=== PATIENT | female | born 1950 | race Caucasian/White ===

== ENCOUNTER 2016-11-06 14:16 | Inpatient (IN) | payer BC ==
[~2016-11-06] VITALS: Ht 162.6 cm; Wt 97.7 kg
[~2016-11-06 14:16] MED LIST: ALDACTONE50 MG PO; ALLEGRA 60MG TA60 MG PO; ALLEGRA D 12 HO1 TER PO; ASPI325T6 PO; ASPIRIN E.C. 8181 MG PO; DIABETA 5MG5 MG/TAB PO; DIOVAN320 MG PO; FARXIGA10 PO; FERROUS SU325 MG/TAB PO; FOLIC ACID 40400 MCG PO; GLUCOPHAGE1000 MG PO; HYGROTON 2525 MG/TAB PO; HYZAAR 25 MG-101 TAB PO; METFORMIN1000 MG PO; MUCINEX 60600 MG/TA1 PO; NORCO 325 MG-7.1 TAB PO; NORVASC 5MG5 MG/TAB PO; ONE DAILY1 TA1 PO; POTASSIUM20 MEQ PO; PRAVACHOL10 MG PO; PREMARIN0.3 MG PO; PROBIOTIC ACID1 EAC3 PO; ROXICODONE 55 MG/TAB PO; SYNTHROID0.1 MG PO; SYNTHROID0.1 MG/TAB PO; ULTRAM 50MG TAB50 MG PO; VITAMIN C500 MG PO; VITAMIN D31000 IU PO; VOLTAREN 75 DR75 MG PO
[2017-01-07] VITALS (11 sets, daily range): BP systolic 109–130; BP diastolic 47–71; PULSE 45–100; TEMP 97.8–98.8
[2017-01-08 03:35] VITALS: BP 105/52; PULSE 69; TEMP 98.8
[2017-01-08 06:57] LABS: HEMATOCRIT 39.6 % (37.0-47.0); HEMOGLOBIN 12.8 g/dl (12.5-16.0)
[2017-01-08 07:44] VITALS: BP 110/54; PULSE 53; TEMP 98.3
[2017-01-08 12:07] VITALS: BP 126/56; PULSE 78; TEMP 97.4
[2017-01-08 16:33] VITALS: BP 106/54; PULSE 83; TEMP 98.2
[2017-01-08 21:30] VITALS: BP 110/56; PULSE 96; TEMP 98.6
[2017-01-09 00:10] VITALS: BP 133/71; PULSE 91; TEMP 98.9
[2017-01-09 04:10] VITALS: BP 132/48; PULSE 93; TEMP 98.9
[2017-01-09 05:49] LABS: HEMATOCRIT 37.8 % (37.0-47.0); HEMOGLOBIN 12.3 g/dl (12.5-16.0)
[2017-01-09 08:17] VITALS: BP 119/60; PULSE 99; TEMP 98.1
[2017-01-09 12:18] VITALS: BP 110/60; PULSE 79; TEMP 97.6
[2017-01-09] MEDS ORDERED: NORCO 325 MG-7.1 TAB PO (13:46)
[2017-01-09] MEDS ORDERED: ASPIRIN 32325 MG/TAB PO (13:46)
[2017-01-09] MEDS ORDERED: ROXICODONE 55 MG/TAB PO (13:47)
== END 2017-01-09 15:00 | disposition home or self-care (01) | DRG 470 ==
LOC: SURG 01-07 06:47 → JCC 01-07 07:30 → SURG 01-07 16:47
PROVIDERS: Orthopaedic Surgery
PROC: 0SRC0J9 Replacement of Right Knee Joint with Synthetic Substitute, Cemented, Open Approach (ICD-10-PCS; principal; 2017-01-07 11:10)
DX: M17.11 Unilateral primary osteoarthritis, right knee (principal); E11.9 Type 2 diabetes mellitus without complications; I10 Essential (primary) hypertension; E03.9 Hypothyroidism, unspecified
CPT/HCPCS: 99222; A4315; A9284; C1713; C1776; J0690; J1100; J1815; J1885; J2250; J2405; J2704; J3010; J3260; J7120

== ENCOUNTER → 2016-12-27 | Outpatient (CLI) | payer BC ==
[2016-12-27 17:23] LABS: HIV 1/2 Antibodies Non-Reactive; HIV-1p24 Antigen Non-Reactive
== END ==
LOC: COL.LAB 14:05
PROVIDERS: Orthopaedic Surgery
DX: Z01.812 Encounter for preprocedural laboratory examination (principal)

== ENCOUNTER → 2017-09-29 | Outpatient (CLI) | payer BC ==
[~2017-09-29] MED LIST changes: +ASPIRIN 32325 MG/TAB PO
[2017-09-29 15:12] LABS: HEMATOCRIT 46.1 % (37.0-47.0); HEMOGLOBIN 15.6 g/dl (12.5-16.0); MEAN CELL VOLUME 82 fl (80.0-100.0); MEAN CORPUSCULAR HEMOGLOBIN 28 pg (27.0-31.0); MEAN CORPUSCULAR HGB CONC 34 g/dl (33.0-37.0); MEAN PLATELET VOLUME 10.3 fl (7.4-10.4); PLATELET COUNT 380 K/mm3 (130-400); RED BLOOD COUNT 5.61 M/mm3 (4.10-5.30); REDCELL DISTRIBUTION WIDTH-CV 13.8 % (11.5-14.5)
[2017-09-29 15:35] LABS: ERYTHROCYTE SEDIMENTATION RATE 4 mm/hr (0-30)
== END ==
LOC: COL.LAB 14:47
PROVIDERS: Nurse Practitioner
DX: T84.84XA Pain due to internal orthopedic prosthetic devices, implants and grafts, initial encounter (principal); M25.461 Effusion, right knee; Z96.651 Presence of right artificial knee joint

== ENCOUNTER → 2017-10-15 | Outpatient (CLI) | payer BC ==
[2017-10-15 08:55] LABS: HEMATOCRIT 41.9 % (37.0-47.0); HEMOGLOBIN 13.5 g/dl (12.5-16.0); MEAN CELL VOLUME 87 fl (80.0-100.0); MEAN CORPUSCULAR HEMOGLOBIN 28 pg (27.0-31.0); MEAN CORPUSCULAR HGB CONC 32 g/dl (33.0-37.0); MEAN PLATELET VOLUME 10.1 fl (7.4-10.4); PLATELET COUNT 289 K/mm3 (130-400); RED BLOOD COUNT 4.82 M/mm3 (4.10-5.30); REDCELL DISTRIBUTION WIDTH-CV 14.8 % (11.5-14.5)
[2017-10-15 09:23] LABS: ERYTHROCYTE SEDIMENTATION RATE 2 mm/hr (0-30)
== END ==
LOC: COL.LAB 08:20
PROVIDERS: Orthopaedic Surgery
DX: Z47.1 Aftercare following joint replacement surgery (principal); M25.561 Pain in right knee; R22.41 Localized swelling, mass and lump, right lower limb; Z96.651 Presence of right artificial knee joint

== ENCOUNTER → 2018-04-27 | Outpatient (CLI) | payer BC | LOC: MC.RAD 14:20 | DX: Z12.31 Encounter for screening mammogram for malignant neoplasm of breast (principal) ==

== ENCOUNTER 2019-04-23 07:42 | Day surgery (SDC) | payer BC ==
[~2019-04-23] VITALS: Ht 162.7 cm; Wt 97.4 kg
[2019-04-23] VITALS (10 sets, daily range): BP systolic 102–131; BP diastolic 56–81; PULSE 46–110; TEMP 98.1
[~2019-04-23 07:42] MED LIST changes: -ASPIRIN 32325 MG/TAB PO; +MULTI VITAMINS1 TAB PO; -ONE DAILY1 TA1 PO
[2019-04-23 09:07] LABS: HEMATOCRIT 41.5 % (37.0-47.0); HEMOGLOBIN 13.6 g/dl (12.5-16.0); MEAN CELL VOLUME 86 fl (80.0-100.0); MEAN CORPUSCULAR HEMOGLOBIN 28 pg (27.0-31.0); MEAN CORPUSCULAR HGB CONC 33 g/dl (33.0-37.0); MEAN PLATELET VOLUME 10.6 fl (7.4-10.4); PLATELET COUNT 333 K/mm3 (130-400); RED BLOOD COUNT 4.81 M/mm3 (4.10-5.30)
[2019-04-23 09:12] LABS: PROTHROMBIN TIME 11.2 SECONDS (9.7-12.8)
[2019-04-23 09:14] LABS: PARTIAL THROMBOPLASTIN TIME 33.3 SECONDS (26.0-37.0)
[2019-04-23 09:17] LABS: CALCIUM 9.9 mg/dL (8.4-10.2); CREATININE, serum 0.96 (0.52-1.25)
--- NOTE | 2019-04-23 10:29 | NUR ---
SEE MERGE FOR MEDICATION ADMINISTRATION TIMES AND INTRA AND POST SEDATION ASSESSMENTS.
[2019-04-23] MEDS ORDERED: VERELAN240 MG PO (11:11)
--- NOTE | 2019-04-23 11:11 | NUR ---
REPORT GIVEN TO EVIE ZIMMER BEDSIDE. PT IS ALERT AND ORIENTED. TR BAND TO R WRIST WITH 12ML IN THE SYRINGE. HEMOSTASIS NOTED. FAMILY AT BEDSIDE. PT HAS NO COMPLAINTS OR QUESTIONS AT THIS TIME.
--- NOTE | 2019-04-23 11:21 | NUR ---
PT is back from cardiac catheterization technician, pt is awake and alert, p,w,d, TR band with [address] to rt wrist, cms intact distal, no bleeding or hematoma noted at this time. wctm. at bs. call light in reach.
--- NOTE | 2019-04-23 11:45 | NUR ---
Pt is awake, satting 88% on room air, placed pt on 2l/nc, sats up to mid 90's.
--- NOTE | 2019-04-23 12:45 | NUR ---
PT is up to bs commode with no problem, voids with no problem, then after sits up at edge of bed to finish her meal. pt is off oxygen now and is satting 93-94% on room air. rt radial site looks good with no hematoma or bleeding, cms remains intact.
--- NOTE | 2019-04-23 14:28 | NUR ---
Pt is getting dressed with husbands help. the remainder of air removed from balloon at 1405, site now dressed with a bandaid without any bleeding or hematoma, cms intact. pt has been able to eat, she has ambulated independently to br with no problem. splint kept in place to rt wrist as a reminder. I reviewed dc/fu and rx instructions with pt and , they were given written copies, and they deny questions at time of departure. pt is escorted to exit via wheelchair.
== END 2019-04-23 14:40 | disposition home or self-care (01) ==
LOC: COL.CAR 07:42
PROVIDERS: Internal Medicine Cardiovascular Disease
DX: I25.10 Atherosclerotic heart disease of native coronary artery without angina pectoris (principal); R94.39 Abnormal result of other cardiovascular function study; E11.9 Type 2 diabetes mellitus without complications; I10 Essential (primary) hypertension; E03.9 Hypothyroidism, unspecified; I48.91 Unspecified atrial fibrillation; G89.29 Other chronic pain; M54.9 Dorsalgia, unspecified; M19.90 Unspecified osteoarthritis, unspecified site; Z80.0 Family history of malignant neoplasm of digestive organs; Z90.49 Acquired absence of other specified parts of digestive tract; Z88.8 Allergy status to other drugs, medicaments and biological substances; Z79.84 Long term (current) use of oral hypoglycemic drugs; Z96.659 Presence of unspecified artificial knee joint; Z90.710 Acquired absence of both cervix and uterus; Z90.722 Acquired absence of ovaries, bilateral; Z90.79 Acquired absence of other genital organ(s); Z79.82 Long term (current) use of aspirin; Z83.3 Family history of diabetes mellitus; Z82.49 Family history of ischemic heart disease and other diseases of the circulatory system
CPT/HCPCS: J1644; J2250; J3010; Q9967

== ENCOUNTER → 2019-08-02 | Outpatient (CLI) | payer BC ==
[~2019-08-02] MED LIST changes: +VERELAN240 MG PO
== END ==
LOC: COL.RAD 08:24
DX: J98.6 Disorders of diaphragm (principal)

== ENCOUNTER 2020-02-09 10:30 | Outpatient (RCR) | payer BC ==
[2020-02-14] MEDS ORDERED: ZOFRAN 4MG T4 MG/TAB PO (18:30)
[2020-02-14] MEDS ORDERED: OMNICEF 300MG300 MG PO (18:30)
[2020-02-14] MEDS ORDERED: NORCO 325 MG-51 TAB PO (18:30)
[2020-02-14] MEDS ORDERED: FLOMAX 0.40.4 MG/CAP PO (18:30)
== END 2020-02-16 | disposition home or self-care (01) ==
LOC: WSPT
DX: M47.816 Spondylosis without myelopathy or radiculopathy, lumbar region (principal); M48.061 Spinal stenosis, lumbar region without neurogenic claudication

== ENCOUNTER 2020-02-14 11:30 | Emergency (ER) | payer BC ==
[~2020-02-14] VITALS: Ht 162.6 cm; Wt 95.5 kg
[2020-02-14 11:38] VITALS: BP 139/74; TEMP 97.4
[2020-02-14 16:32] LABS: COLLECTION METHOD CLEAN CATCH
[2020-02-14 16:32] LABS: BASO # 0.1 (0.0-0.2); BASO % 0.4 % (0.0-2.0); EOS # 0.1 (0.0-0.7); EOS % 0.4 % (0-4.0); GRAN # 11.3 (1.4-6.5); HEMATOCRIT 41.3 % (37.0-47.0); HEMOGLOBIN 13.7 g/dl (12.5-16.0); LYMPH # 2.1 (1.2-3.4); LYMPH % 14.5 % (20.0-51.0); MEAN CELL VOLUME 85 fl (80.0-100.0); MEAN CORPUSCULAR HEMOGLOBIN 28 pg (27.0-31.0); MEAN CORPUSCULAR HGB CONC 33 g/dl (33.0-37.0); MEAN PLATELET VOLUME 10.2 fl (7.4-10.4); MONO # 0.6 (0.1-0.6); MONO % 4.4 % (1.7-9.3); PLATELET COUNT 356 K/mm3 (130-400); RED BLOOD COUNT 4.85 M/mm3 (4.10-5.30); REDCELL DISTRIBUTION WIDTH-CV 14.6 % (11.5-14.5)
[2020-02-14 16:41] LABS: PH 7 (5-8); SQUAMOUS EPITHELIAL 0-2 /hpf; URINE APPEARANCE Hazy; URINE BACTERIA None Seen /hpf; URINE BILIRUBIN Negative (NEGATIVE); URINE BLOOD 3+ (NEGATIVE); URINE COLOR Yellow; URINE GLUCOSE Negative (NEGATIVE); URINE KETONE Trace (NEGATIVE); URINE LEUKOCYTE ESTERASE Negative (NEGATIVE); URINE NITRATE Negative (NEGATIVE); URINE PROTEIN(semi-quant) Negative (NEGATIVE); URINE RBC >50 /hpf; URINE UROBILINOGEN Negative (NEGATIVE)
[2020-02-14 16:47] LABS: ALBUMIN 4.8 gm/dL (3.5-5.0); BILIRUBIN,TOTAL 0.5 mg/dL (0.0-1.0); C-REACTIVE PROTEIN 1.7 mg/dL (0.0-0.9); CALCIUM 10.5 mg/dL (8.4-10.2); POTASSIUM 4.5 mmol/L (3.4-5.0); TOTAL PROTEIN 8.4 gm/dL (6.4-8.2)
[2020-02-14] MEDS ORDERED: NORCO 325 MG-51 TAB PO (18:30)
[2020-02-14] MEDS ORDERED: OMNICEF 300MG300 MG PO (18:30)
[2020-02-14] MEDS ORDERED: FLOMAX 0.40.4 MG/CAP PO (18:30)
[2020-02-14] MEDS ORDERED: ZOFRAN 4MG T4 MG/TAB PO (18:30)
[2020-02-14 18:51] VITALS: PULSE 76
== END 2020-02-14 18:51 | disposition home or self-care (01) ==
LOC: COL.ER 11:30
PROVIDERS: Emergency Medicine
DX: N13.2 Hydronephrosis with renal and ureteral calculous obstruction (principal); I10 Essential (primary) hypertension; E11.9 Type 2 diabetes mellitus without complications; Z90.49 Acquired absence of other specified parts of digestive tract; Z90.710 Acquired absence of both cervix and uterus; Z79.82 Long term (current) use of aspirin; Z79.84 Long term (current) use of oral hypoglycemic drugs
CPT/HCPCS: J2405; J7030; Q9967

== ENCOUNTER 2020-04-05 14:30 | Outpatient (RCR) | payer BC ==
[~2020-04-05 14:30] MED LIST changes: +FLOMAX 0.40.4 MG/CAP PO; +NORCO 325 MG-51 TAB PO; +OMNICEF 300MG300 MG PO; +ZOFRAN 4MG T4 MG/TAB PO
== END 2020-04-10 10:41 | disposition home or self-care (01) ==
LOC: WSPT 14:30
DX: M47.816 Spondylosis without myelopathy or radiculopathy, lumbar region (principal); M48.061 Spinal stenosis, lumbar region without neurogenic claudication

== ENCOUNTER 2021-01-17 09:05 | Day surgery (SDC) | payer BC ==
[~2021-01-17] VITALS: Ht 162.6 cm; Wt 98.7 kg
[2021-01-17 10:11] VITALS: BP 126/59; PULSE 62; TEMP 98.3
[2021-01-17] MEDS ORDERED: OZEMPIC0.25 MG/0. SQ (10:25)
[2021-01-17] MEDS ORDERED: ZYRTEC 10MG10 MG PO (10:26)
[2021-01-17] MEDS ORDERED: SINGULAIR 110 MG/TAB PO (10:26)
[2021-01-17 11:40] VITALS: BP 103/42; PULSE 81; TEMP 97.8
--- NOTE | 2021-01-17 11:40 | NUR ---
Pt returns to [facility] from OR, pt awakens easily, denies pain or nausea. Report received from MARKETING RESEARCHER and RN. VSS. Call light in reach. Left foot elevated and dressing clean and dry. CMS intact to left toes.
[2021-01-17 11:55] VITALS: BP 112/50; PULSE 76
--- NOTE | 2021-01-17 12:00 | NUR ---
Pt tolerates a muffin and diet pepsi well, no pain or nausea. VSS. Pt will contact her son-in-law for a ride home. Dr. Torres at bedside and talks with pt. Call light in reach.
[2021-01-17 12:10] VITALS: BP 122/62; PULSE 74
--- NOTE | 2021-01-17 12:35 | NUR ---
Discharge instructions provided. Pt amublates on post-op shoe to the bathroom and tolerates well, gait steady. VSS. IV discontinued and pt taken out via wheelchair and left in care of her son-in-law.
== END 2021-01-17 12:35 | disposition home or self-care (01) ==
LOC: SDCO 09:05
DX: M21.612 Bunion of left foot (principal); M20.42 Other hammer toe(s) (acquired), left foot; I48.0 Paroxysmal atrial fibrillation; I12.9 Hypertensive chronic kidney disease with stage 1 through stage 4 chronic kidney disease, or unspecified chronic kidney disease; E03.9 Hypothyroidism, unspecified; M19.90 Unspecified osteoarthritis, unspecified site; J30.9 Allergic rhinitis, unspecified; K21.9 Gastro-esophageal reflux disease without esophagitis; K52.9 Noninfective gastroenteritis and colitis, unspecified; E11.22 Type 2 diabetes mellitus with diabetic chronic kidney disease; N18.32 Chronic kidney disease, stage 3b; Z20.822 Contact with and (suspected) exposure to COVID-19; Z79.82 Long term (current) use of aspirin; Z79.84 Long term (current) use of oral hypoglycemic drugs; Z79.890 Hormone replacement therapy; Z79.899 Other long term (current) drug therapy; Z80.0 Family history of malignant neoplasm of digestive organs
CPT/HCPCS: J0690; J2704; J7120